=== PATIENT | female | born 1950 | race Caucasian/White ===

== ENCOUNTER 2018-07-05 11:25 | Emergency (ER) | payer MEDICARE, MEDICAID, SELFPAY ==
[2018-07-05 11:32] VITALS: BP 118/85; PULSE 79; RESP 16; TEMP 36.9; O2SAT 90; BMI 22.3
--- NOTE | 2018-07-05 12:07 | ED.VISSUMM ---
- ER Visit Summary Date of Service: 07/05/18 Chief Complaint: [facility] Patient herself denies any medical complaints. History of Present Illness: The patient is a 68 F history of bipolar disorder and decreased hearing. Patient denies any complaints. snf under evaluated. She denies any nausea, vomiting or diarrhea. No fever. No dysuria. Physical Examination: Well-appearing older female. Vital signs are stable and afebrile. She does not look septic or toxic. She is in no distress. HEENT exam unremarkable. Pupils are round reactive light. No facial droop. Normal speech. Neck nontender. Lungs clear to auscultation bilaterally. Heart regular rhythm no murmur rate about 80. Chest wall nontender. Abdomen soft nontender. Extremities moves all 4. Calves nontender. She is up walking in her room and also in the hallway. Neurologically she is awake and alert. She has no focal motor deficits. She is animated and appears manic consistent with a bipolar disorder. But she has no focal motor deficits. Test Results: CBC White count of 6 hemoglobin 14. Platelet count is slightly low at 117,000. Electrolytes unremarkable gap is 7 creatinine 0.7. Normal glucose. UA normal. Tox screen negative. Alcohol negative. Emergency Department Course and Treatment: I spoke to my nurse and believes she had the lawn and they think the placement need psychiatric placement. She is currently in assisted living and they cannot meet her needs. They says she is staying up all night. She is very animated. She is having verbal inappropriate interactions with the staff. Patient was treated with DEBBI Lopez in the emergency department. Patient Leaving her room and walking down the hallway. Treatment Plan: Crisis evaluation for final disposition. Disposition: [] Impression: Acute manic behavior with a history of bipolar disorder. Medical clearance This note was generated with [email or web address] dictation software. It may contain incorrect words, spelling, and punctuation that were not noted in review of the chart prior to signing ED Disposition - Plan for ED Patient: Chief Complaint: Confusion Referrals: Care Physician,No Primary [Primary Care Provider] -
--- NOTE | 2018-07-05 12:11 | ED.DCSUM_ITS ---
- ER Visit Summary Date of Service: 07/05/18 Chief Complaint: [facility] from the [facility] for [facility]. Patient herself denies any medical complaints. History of Present Illness: The patient is a 68 F history of bipolar disorder and decreased hearing. Patient denies any complaints. custodial under evaluated. She denies any nausea, vomiting or diarrhea. No fever. No dysuria. Physical Examination: Well-appearing older female. Vital signs are stable and afebrile. She does not look septic or toxic. She is in no distress. HEENT exam unremarkable. Pupils are round reactive light. No facial droop. Normal speech. Neck nontender. Lungs clear to auscultation bilaterally. Heart regular rhythm no murmur rate about 80. Chest wall nontender. Abdomen soft nontender. Extremities moves all 4. Calves nontender. She is up walking in her room and also in the hallway. Neurologically she is awake and alert. She has no focal motor deficits. She is animated and appears manic consistent with a bipolar disorder. But she has no focal motor deficits. Test Results: CBC White count of 6 hemoglobin 14. Platelet count is slightly low at 117,000. Electrolytes unremarkable gap is 7 creatinine 0.7. Normal glucose. UA normal. Tox screen negative. Alcohol negative. Emergency Department Course and Treatment: I spoke to my nurse and believes she had the lawn and they think the placement need psychiatric placement. She is currently in assisted living and they cannot meet her needs. They says she is staying up all night. She is very animated. She is having verbal inappropriate interactions with the staff. Patient was treated with DEBBI Lopez in the emergency department. Patient Leaving her room and walking down the hallway. Treatment Plan: Crisis evaluation for final disposition. Disposition: [] Impression: Acute manic behavior with a history of bipolar disorder. Medical clearance This note was generated with [employer] dictation software. It may contain incorrect words, spelling, and punctuation that were not noted in review of the chart prior to signing ED Disposition - Plan for ED Patient: Chief Complaint: Confusion Referrals: Care Physician,No Primary [Primary Care Provider] -
--- NOTE | 2018-07-05 12:15 | ED.RN ---
NIECY WITH CRISIS LET ME TALK TO MY TEAM AND I WILL SEE WHEN WE CAN GET SOMEONE OUT THERE.
[2018-07-05] MEDS: Ziprasidone IM 20 MG/ML VIAL IM (13:02)
--- NOTE | 2018-07-05 13:02 | ED.RN ---
PT INCREASINGLY MORE AGITATED DURING ED STAY. PT FOUND SEVERAL TIMES WANDERING THE UNIT AND BEING UNCOOPERATIVE IN RETURNING TO ROOM. PT REFUSING IV, LABS, AND URINE COLLECTION. PT INSISTS ON VARIOUS MEMBERS OF THE FAMILY BEING CONTACTED. FAMILY HAS BEEN CALLED AND CALL TRANSFERRED TO THE ROOM. THIS NURSE ATTEMPTED SEVERAL TIMES TO REDIRECT PT, SOMETIMES UNSUCCESSFUL. PT GIVEN MEDICATION PER MAR, WILL CONTINUE TO OBSERVE AND MONITOR
--- NOTE | 2018-07-05 13:50 | ED.RN ---
REQUESTED FROM PT TO START PERIPHERAL IV AND DRAW BLOOD. PT ADAMANTLY REFUSES AND ALSO REFUSES TO GIVE A URINE SAMPLE ORDERED.
[2018-07-05 14:50] LABS: Bacteria 0 SEEN /hpf (None Seen); Mucous, Urine 0 SEEN /hpf (<or=2+)
[2018-07-05 14:51] LABS: Color, Urine Straw (Yellow); Glucose, Dipstick Normal (Normal); Ketone-Dipstick Negative (Negative); Leukocyte Esterase-Dipstick Negative /ul (Negative); Nitrite-Dipstick Negative (Negative); Occult Blood-Urine Negative /ul (Negative); Protein-Dipstick Negative (Negative); Urine Bilirubin Dipstick Negative (Negative); Urine Clarity Clear (Clear); Urine Urobilinogen Normal (Normal)
[2018-07-05 14:55] LABS: Absolute Lymphocyte Count 1.55 X10^3/ul (0.83-4.51); Absolute Neutrophil Count 4.4 X10^3/uL (2.0-7.7); Basophil# 0.03 X10^3/uL; Basophil% 0.4 % (0-1); Eosinophil# 0.25 X10^3/uL; Eosinophils% 3.7 % (0-5); Hematocrit 45.4 % (37-47); Hemoglobin 14.4 g/dl (12.0-15.0); Lymphocyte # 1.55 X10^3/ul (4.0); Lymphocyte % 22.9 % (19-41); Mean Corp Hgb Conc 31.7 g/gl (32-36); Mean Corpuscular Hgb 32.4 pg (27.0-32.0); Mean Corpuscular Volume 102.3 fL (81-99); Mean Platelet Vol. 11.5 fl (6.2-12.0); Monocyte# 0.53 X10^3/uL; Monocyte% 7.8 % (0-10); Neutrophil % 65.1 % (47-70); Platelet Count 117 K/mm3 (150-450); RBC Distribution Width CV 14.7 % (11.6-14.6); Red Blood Count 4.44 M/mm3 (4.2-5.4); White Blood Count 6.8 K/mm3 (4.4-11.0)
[2018-07-05 14:58] LABS: Differential Indicated SCAN CRITERIA MET; POSITIVE COUNT NO; POSITIVE DIFFERENTIAL NO; POSITIVE MORPHOLOGY YES
[2018-07-05 14:58] LABS: Red Blood Cells-Urine 0-5 SEEN /hpf (0-5); Squamous Epithelial Cells - UA 0-5 SEEN /hpf (5-10); White Blood Cells 0-5 SEEN /hpf (0-5)
[2018-07-05 15:04] LABS: Amphetamine Urine VISTA NEGATIVE (<1000 ng/mL); Barbiturate Urine VISTA NEGATIVE (< 200 ng/mL); Benzodiazepine Urine VISTA NEGATIVE (< 200 ng/mL); Cocaine Urine VISTA NEGATIVE (< 300 ng/mL); Ecstacy Urine VISTA NEGATIVE (< 500 ng/mL); Methadone Urine VISTA NEGATIVE (< 300 ng/mL); PCP Urine VISTA NEGATIVE (< 25 ng/mL); THC Urine VISTA NEGATIVE (< 50 ng/mL); Vista UDS pH Range 7
[2018-07-05 15:06] LABS: Anion Gap 7 (5-15); BUN 14 mg/dL (7-18); BUN/Creat Ratio 18.8 RATIO (10-20); Calcium,Total 9.5 mg/dL (8.5-10.1); Chloride 110 mmol/L (98-107); Creatinine, Serum 0.74 mg/dL (0.55-1.02); EST Glomerular Filtration Rate 83 mL/min (>60); Est Glom Filt Rate - Afr Amer 100 mL/min (>60); Estimated Creatinine Clearance 53.09 ml/min; Glucose 94 mg/dL (74-106); Potassium 3.8 mmol/L (3.5-5.1); Sodium Level 144 mmol/L (136-145)
[2018-07-05 15:12] LABS: Alcohol, Blood (Medical)-Serum < 3.0 mg/dL
[2018-07-05 16:03] VITALS: PULSE 88; RESP 16; O2SAT 97
--- NOTE | 2018-07-05 16:54 | ED.DEP ---
ED Disposition - Plan for ED Patient: Chief Complaint: Confusion Referrals: Care Physician,No Primary [Primary Care Provider] -
[2018-07-05] MEDS: LORazepam 1 MG Tablet PO ×2 (17:45→21:07)
[2018-07-05 20:34] VITALS: RESP 17
[2018-07-05 21:20] VITALS: BP 131/90; PULSE 77; RESP 18; O2SAT 90
[2018-07-05] MEDS: Mirtazapine 15 MG Tablet 7.5 MG PO (21:30)
[2018-07-05] MEDS: Lithium Carbonate 300mg Capsule 300 MG PO (21:30)
[2018-07-05] MEDS: Pantoprazole Sodium 40 MG Tablet PO (21:31)
[2018-07-05] MEDS: carBAMazepine 200 MG Tablet PO (21:32)
[2018-07-05] MEDS: OXcarbazepine 300 MG Tablet 150 MG PO (21:33)
--- NOTE | 2018-07-05 22:08 | ED.RN ---
CALLED FOR TRANSPORT, [facility] NOT ABLE TO TAKE TILL MORNING, [facility] ACCEPTED, WILL BE TWO HOURS TILL ARRIVAL.
[2018-07-06 00:04] VITALS: BP 122/77; PULSE 67; RESP 17; TEMP 36.6; O2SAT 90
== END 2018-07-06 00:08 ==
PROVIDERS: Emergency Provider Emergency Medicine
DX: F30.9 Manic episode, unspecified (principal); D69.6 Thrombocytopenia, unspecified; F03.91 Unspecified dementia, unspecified severity, with behavioral disturbance; Z72.0 Tobacco use; Z79.899 Other long term (current) drug therapy
CPT/HCPCS: 80048; 80307; 80320; 81001; 85025; 96372; 99285; A4216; G0480; J3486

== ENCOUNTER 2019-01-30 12:36 | Emergency (ER) | payer MEDICARE, MEDICAID, SELFPAY ==
[2019-01-30 12:38] VITALS: BP 137/81; PULSE 90; RESP 18; TEMP 37.3; O2SAT 92; BMI 17.3
[2019-01-30 12:43] VITALS: BP 137/81; PULSE 88; RESP 91; TEMP 37.3; O2SAT 92
--- NOTE | 2019-01-30 13:02 | ED.DCSUM_ITS ---
History of Present Illness Chief Complaint: Mental Health Informant: Significant Other, [facility] Onset: Yesterday Current Severity: Mild Narrative: The patient is brought in from [facility] she has history of bipolar disorder she is on lithium and Ativan in the history as we determine from talking with staff the son and the patient is as follows she is basically been stable with her general health and traumatic mental health conditions, the last few days she has developed a desire to be with her boyfriend, there is been a dispute at the [facility] was thus advisable in a good idea for her to be around this individual she was restricted last night and began throwing her clothing around as she wanted to leave with the boyfriend. She was prevented from doing so. This morning she was able to pack all of her belonging s and the boyfriend's vehicle when the nurses found her doing so they removed all of her belongings and put them back in her apartment and then there was an additional dispute with staff about her right to be with the boyfriend per the patient the patient has a power of account supervisor her son Carlo [phone] who was contacted and indicated he did not wish the mother to leave with the boyfriend the patient continued to dispute her rights and apparently she was then sent to the emergency department The patient indicates she has no complaints she has no head neck chest or abdominal pain she is oriented x3 she does admit to being upset that she feels she was not allowed to exercise her desire to be with the boyfriend. I did speak with the son at that number he indicates he feels that the boyfriend may come in and give her alcohol which might exacerbate her bipolar and other health conditions he does not believe she should be with the boyfriend, he has asked the [facility] to not allow this individual to contact with his mother Past Medical History - Allergies and Home Meds Allergies/Adverse Reactions: Allergies tetracycline Allergy (Verified 01/30/19 12:37) Unknown Primary Care Physician: Care Physician,No Primary [Primary Care Provider] - Past Medical History: - Smoking Status: Current every day smoker Review of Systems ROS: - Polar disorder mental health disorder General: Denies: Chills, Fever, Sweats Eyes: Denies: Visual changes - bilaterally, Diplopia ENT: Denies: Rhinorrhea, Sore throat Cardiovascular: Denies: Chest pain, Palpitations Respiratory: Denies: Dyspnea, Cough, Dyspnea on exertion Gastrointestinal: Denies: Abdominal pain, Nausea, Vomiting, Diarrhea, Melena, Hematochezia Genitourinary: Denies: Dysuria, Hematuria, Frequency Musculoskeletal: Denies: Back pain, Extremity Pain Skin: Denies: Rash, Wounds Neurological: Denies: Headache, Weakness, Numbness Physical Exam Vital Signs/Narrative: Vital Signs Temp Pulse Resp BP Pulse Ox 01/30/19 12:43 99.2 F H 88 91 H 137/81 H 92 01/30/19 12:38 99.2 F H 90 18 137/81 H 92 General: Well nourished, Well developed, No Acute Distress Head: Normocephalic, Atraumatic Eyes: Perrl, EOMI ENT: Moist mucous membranes, No rhinorrhea Neck: Supple, Nontender Cardiovascular: Regular rate, Regular rhythm, No murmurs Respiratory: No distress, CTA bilaterally, Chest nontender Abdomen: Soft, Nontender, Nondistended, Normal bowel sounds Back: Nontender, Normal Inspection Extremities: Nontender, No edema Skin: Normal color, No rash Neurological: Alert, Oriented x3, Cranial nerves II-XII grossly intact, Normal Strength, Normal Sensation Psychological: Normal affect, Normal Mood Diagnostic/Tx/Re-eval - Medical Decision Making Long conversation with the patient, the [facility] personnel and the son at the number above the plan at this time is to have mental health services come and evaluate the patient to see if they have any further input into her therapy and ongoing issues with the boyfriend and her rights to be with the boyfriend etc., the son is comfortable for discharge back to the nursing center as he indicates that the [facility] personnel make sure she does not contact with the boyfriend So at this point time her disposition will be determined after she is seen by mental health services Disposition per mental health services Final impression History of mental health disorder, bipolar disorder, situational stress related to patient's desire to be with boyfriend ED Disposition - Plan for ED Patient: Referrals: Care Physician,No Primary [Primary Care Provider] -
--- NOTE | 2019-01-30 13:16 | NURSING ---
CRISIS CALLED TO EVALUATE THIS PATIENT.
[2019-01-30 13:40] LABS: Absolute Lymphocyte Count 1.13 X10^3/uL (0.83-4.51); Absolute Neutrophil Count 5.5 X10^3/uL (2.0-7.7); Basophil# 0.07 X10^3/uL; Basophil% 0.9 % (0-1); Eosinophil# 0.11 X10^3/uL; Eosinophils% 1.4 % (0-5); Hematocrit 45.9 % (37-47); Lymphocyte # 1.13 X10^3/ul (4.0); Lymphocyte % 14.8 % (19-41); Mean Corp Hgb Conc 32.7 g/dL (32-36); Mean Corpuscular Hgb 32.3 pg (27.0-32.0); Mean Corpuscular Volume 98.9 fL (81-99); Monocyte# 0.75 X10^3/uL; Monocyte% 9.9 % (0-10); NRBC Flagged by Analyzer 0 % (0-5); Neutrophil # 5.51 X10^3/uL (2.7-7.7); Neutrophil % 72.5 % (47-70); Platelet Count 140 K/mm3 (150-450); RBC Distribution Width CV 14.3 % (11.6-14.6); RBC Distribution Width SD 51.5 fl (35.1-43.9); Red Blood Count 4.64 M/mm3 (4.2-5.4); White Blood Count 7.6 K/mm3 (4.4-11.0)
[2019-01-30 13:54] LABS: Anion Gap 4 (5-15); BUN 14 mg/dL (7-18); BUN/Creat Ratio 16.8 RATIO (10-20); Calcium,Total 9.3 mg/dL (8.5-10.1); Chloride 109 mmol/L (98-107); Creatinine, Serum 0.84 mg/dL (0.55-1.02); EST Glomerular Filtration Rate 72 mL/min (>60); Est Glom Filt Rate - Afr Amer 87 mL/min (>60); Glucose 125 mg/dL (74-106); Potassium 3.4 mmol/L (3.5-5.1); Sodium Level 140 mmol/L (136-145)
[2019-01-30 14:03] LABS: Alcohol, Blood (Medical)-Serum < 3.0 mg/dL
--- NOTE | 2019-01-30 15:01 | NURSING ---
MIGDALIA, CRISIS, HERE FOR PATIENT
--- NOTE | 2019-01-30 15:14 | ED.DEP ---
ED Disposition - Plan for ED Patient: Diagnosis: Situational stress Instructions: Stress: Causes and Effects, OPPOSITIONAL DEFIANT DISORDER (Child/Teen) Referrals: Care Physician,No Primary [Primary Care Provider] -
--- NOTE | 2019-01-30 15:25 | NURSING ---
CALLED [facility] FOR TRANSPORT
[2019-01-30 15:29] VITALS: BP 121/74; PULSE 67; RESP 15; O2SAT 98
== END 2019-01-30 16:18 | disposition home or self-care (01) ==
PROVIDERS: Emergency Provider Emergency Medicine
DX: F43.8 Other reactions to severe stress (principal); F31.9 Bipolar disorder, unspecified; Z79.899 Other long term (current) drug therapy; F17.200 Nicotine dependence, unspecified, uncomplicated
CPT/HCPCS: 80048; 80178; 80320; 85025; 99285; G0480